=== PATIENT | female | born 1965 | race Caucasian/White ===

== ENCOUNTER → 2018-03-17 | Outpatient (CLI) | payer BC ==
--- NOTE | 2018-03-17 13:25 | BD ---
EXAMINATION TYPE: Axial Bone Density DATE OF EXAM: 03/17/2018 COMPARISON: 03.16.2016 CLINICAL HISTORY: 52 YR OLD FEMALE....ICD-10 CODE: N95.1 MENOPAUSAL SYMPTOMS, C50.411 BREAST CA NCER Height: 65.7 Weight: 245 FRAX RISK QUESTIONS: NONE TO NOTE RISK FACTORS HISTORY OF: Active: YES Diet low in dairy products/other sources of calcium: NO Postmenopausal woman: YES AT AGE 46, BREAST CANCER MEDICATIONS: Additional Medications: ANASTROZOLE, VIT D, TUMS, HX OF CHEMO AND RADIATION Additional History: RT BR CA 2011, LT BR CA 2014, EXAM MEASUREMENTS: Bone mineral densitometry was performed using the [employer] System. Bone mineral density as measured about the Lumbar spine is: ----- L1-L4(G/cm2): 1.487 T Score Values are as follows: ----- L1: 2.4 ----- L2: 2.3 ----- L3: 2.9 ----- L4: 2.4 ----- L1-L4: 2.6 Bone mineral density has: Decreased -2.9% since study of: 03.16.2016 Bone mineral density about the R hip (g/cm2): 1.293 Bone mineral density about the L hip (g/cm2): 1.316 T Score values are as follows: -----R Neck: 1.9 -----L Neck: 1.9 -----R Total: 2.3 -----L Total: 2.4 Bone mineral density has: Decreased -4.2% since study of: 03.16.2016 FRAX%s: THERE IS A 5.8% CHANCE OF A MAJOR OSTEOPOROTIC FX AND A 0.0% FOR HIP.....PROBABILITY OF FX IN 10 YRS TIME IMPRESSION: Normal (Values between +1 and -1 indicate normal bone mass). Consider repeating this study in 5 year s or sooner if there is some new clinical indication. NOTE: T-SCORE=SD OF THE YOUNG ADULT MEAN.
== END | disposition home or self-care (01) ==
LOC: RADBDWWP 09:38
PROVIDERS: ATTEND Internal Medicine Hematology & Oncology
DX: C50.411 Malignant neoplasm of upper-outer quadrant of right female breast (principal); N95.1 Menopausal and female climacteric states; Z79.890 Hormone replacement therapy
CPT/HCPCS: 77080

== ENCOUNTER → 2019-02-09 | Outpatient (CLI) | payer BC ==
--- NOTE | 2019-02-09 16:52 | NM ---
EXAMINATION TYPE: NM bone scan whole body DATE OF EXAM: 02/09/2019 COMPARISON: 04/16/2015 HISTORY: 53-year-old female with history of breast cancer, 1 day of left leg pain and left shoulder p ain this morning. Technique: Delayed whole-body scanning was performed following the injection of 23.3 mCi Tc 99m MDP. Images acquired 3 hours post injection. FINDINGS: Their is evidence of new osseous metastatic disease. Approximately 3 intense foci within the calvariu m, a focus within the left sternal manubrium, scattered within the thoracic and upper lumbar spine, p osterolateral mid right ribs and anterolateral right lower ribs, within the surgical neck region of t he right humerus, 3 additional foci within the right humeral shaft, one within the left humeral shaft , foci at both hips, proximal femoral shafts, medial aspect of the mid left leg, and a tiny focus in the lateral upper right leg. There is also tracer distention of the right renal collecting system. IMPRESSION: 1. Diffuse osseous metastatic disease as above. Further CT correlation should be considered for metas tatic workup. 2. The sites of pain in particular can be evaluated radiographically to exclude impending pathologic fracture. 3. Distention of the right renal collecting system suggests hydronephrosis from a distal obstruction. This can also be assessed on the patient's CT.
== END | disposition home or self-care (01) ==
LOC: RADNMMAIN 09:50
PROVIDERS: ATTEND Internal Medicine Hematology & Oncology
DX: C79.51 Secondary malignant neoplasm of bone (principal); C50.411 Malignant neoplasm of upper-outer quadrant of right female breast; N28.89 Other specified disorders of kidney and ureter
CPT/HCPCS: 78306; A9503